=== PATIENT | female | born 1975 | race Caucasian/White ===

== ENCOUNTER 2016-05-26 10:24 | Emergency (ER) | payer OTHER ==
[~2016-05-26] VITALS: Ht 154.9 cm; Wt 56.8 kg
[2016-05-26 10:35] VITALS: BP 159/96; PULSE 63; RESP 18; O2SAT 100
[2016-05-26] MEDS ORDERED: OMEP20CA11 PO (11:24)
[2016-05-26] MEDS ORDERED: GABA-504 PO (11:24)
[2016-05-26] MEDS ORDERED: SERT50TA9 PO (11:24)
[2016-05-26] MEDS ORDERED: TRAZ-115 PO (11:24)
[2016-05-26] MEDS ORDERED: CYCL10TA9 PO (11:24)
[2016-05-26] MEDS ORDERED: PROP40TA5 PO ×2 (11:24)
--- NOTE | 2016-05-26 11:59 | DRSVH ---
PROCEDURE: X-RAY LEFT SHOULDER, MINIMUM TWO VIEWS ([id number]) INDICATIONS: pain after lifting and hearing a pop TECHNIQUE: 3 views of the shoulder were acquired. COMPARISON: None. FINDINGS: Bones: No fractures or dislocations. No suspicious bony lesions. Visualized ribs appear intact. Soft tissues: No suspicious soft tissue calcifications. IMPRESSION: No fracture or dislocation. If clinical symptoms persist or clinical suspicion for patho logy is high, advanced imaging such as MRI is suggested for further evaluation. Dictated by: Ceasar Rodgers M.D. on 05/26/2016 at 11:57 Approved by: Ceasar Rodgers M.D. on 05/26/2016 at 11:57
--- NOTE | 2016-05-26 13:23 | ED.REPORT ---
HPI-Extremity Problem Upper Date of Service May 26, 2016 ED Provider: Roger Villasenor PA-C Otherwise healthy 41-year-old female presents with a chief complaint of left shoulder pain that began 2 weeks ago when she lifted a propane tank onto her left shoulder and felt a pop. She has had increasing pain and reduced range of motion since then. Denies numbness/tingling in the limb. Denies back pain. Nursing Notes Stated Complaint: SHOULDER PAIN Chief Complaint: Extremity Trauma Nursing Notes Reviewed: Yes Allergies: Coded Allergies: Sulfa (Sulfonamide Antibiotics) (Verified Allergy, Unknown, 05/26/16) bacitracin (Verified Allergy, Unknown, 05/26/16) neomycin (Verified Allergy, Unknown, 05/26/16) polymyxin B (Verified Allergy, Unknown, 05/26/16) Scheduled Gabapentin (Gabapentin) 400 Mg Capsule 1,200 MG PO TID Omeprazole (Omeprazole) 20 Mg Capsule.dr 20 MG PO DAILY Propranolol HCl (Propranolol HCl) 40 Mg Tablet 20 MG PO QAM Propranolol HCl (Propranolol HCl) 40 Mg Tablet 40 MG PO HS Sertraline HCl (Sertraline) 50 Mg Tablet 25 MG PO DAILY Scheduled PRN Cyclobenzaprine (Cyclobenzaprine) 10 Mg Tablet 10 MG PO TID PRN PRN Spasm Trazodone (Trazodone) 50 Mg Tablet 1 TAB PO HS PRN PRN For Insomnia oxyCODONE (oxyCODONE) 5 Mg Tablet 5 MG PO Q4H PRN PRN For Pain General Time Seen by MD: 13:04 Chief Complaint Shoulder injury left Review of Systems Review of Systems Note: Negative unless stated otherwise in history of present illness Physical Exam General: Well appearing, well developed, well nourished, no acute distress. Right shoulder: Generally tender, worse over the acromion process and medial border of the scapula. Active and passive abduction to approximately 80. Internal and external rotation normal. Extension to approximately 80. Head: Atraumatic, normocephalic. Eyes: No scleral icterus or injection. No discharge. Vision grossly intact. ENT: Voice clear, hearing grossly intact. Skin: Warm and dry. Neurological: Grossly nonfocal. Psychological: alert and oriented. Speech appropriate, linear and logical. Behavior appropriate. Initial Vital Signs Vital Signs (First) Date Time Temp Pulse Resp B/P Pulse Ox O2 Delivery O2 Flow Rate FiO2 05/26/16 10:35 35.8 63 18 159/96 100 Initial VS: Reviewed, Vital signs normal Interpretation & Diagnostics X-Ray Interpretation Xray Interpretation: PROCEDURE: X-RAY LEFT SHOULDER, MINIMUM TWO VIEWS ([id number]) INDICATIONS: pain after lifting and hearing a pop IMPRESSION: No fracture or dislocation. If clinical symptoms persist or clinical suspicion for pathology is high, advanced imaging such as MRI is suggested for further evaluation. Re-Eval/Medical Decision Med Decision/Clinical Course Otherwise healthy 41-year-old female presents chief complaint left shoulder pain. Physical reveals reduced range of motion, neurovascularly intact. X- rays reveal no fracture. I believe this is soft tissue injury, suspicious of labral tear. Discharge patient with work note, instructions for over-the- counter analgesia and a small amount of oxycodone supplemental pain control. Advised rest, provided orthopedic follow-up referral and return precautions Discharge & Departure Impression: Primary Impression: Soft tissue injury of left shoulder Disposition: Home Discharge Condition All VS Reviewed: Yes Condition: Stable Additional Instructions: Evaluation for left shoulder pain in the emergency department today. History is reassuring that this is most likely musculoskeletal as opposed to cardiac pain. X-ray is negative for shoulder fracture. Physical exam is reassuring that there are no neurological or vascular damage, but is concerning for a soft tissue injury such as labral tear. I will provide a referral to an orthopedic surgeon. Please contact them as soon as possible to arrange follow-up. I recommend rest and ice for the shoulder. I do not recommend a sling, because he want to keep the shoulder mobile. The pain is best treated with 600 mg of ibuprofen (Advil, Motrin) every 6 hours, or 1000 mg of acetaminophen (Tylenol) every 6 hours. These drugs can be taken at the same time for more severe pain. I will also provide a small amount of oxycodone to be taken up to every 4 hours for pain not controlled by the other medications. Please do not drive or drink alcohol within 4 hours of taking this medication. Follow-up with the orthopedic surgeon as soon as possible. Return to emergency department for any new or worsening symptoms including increasing pain, inability to move the shoulder or numbness/weakness in the arm. Referrals: Dashawn Crump MD EDSupervising Provider for [facility]: Maykel Quintana MD copies to: Dashawn Crump MD, Seth PA-C May 26, 2016 13:23
[2016-05-26] MEDS ORDERED: OXYC5TAB72 PO (13:24)
== END 2016-05-26 13:47 | disposition home or self-care (01) ==
LOC: SED 10:24
DX: S49.82XA Other specified injuries of left shoulder and upper arm, initial encounter (principal); X50.0XXA Overexertion from strenuous movement or load, initial encounter; Y93.89 Activity, other specified; Y92.89 Other specified places as the place of occurrence of the external cause; Y99.8 Other external cause status; Z88.1 Allergy status to other antibiotic agents; Z88.8 Allergy status to other drugs, medicaments and biological substances